=== PATIENT | male | born 1950 | race Caucasian/White ===

== ENCOUNTER 2016-09-16 22:24 | Inpatient (IN) | payer OTHER ==
--- NOTE | ~2016-09-16 | DS ---
Discharge Summary [facility] [address] [place]. [address] NAME: SATNAM ANGELO : 50 STATUS : DIS IN PAT#: [id number] AGE: 66 ADM/REG DATE : 09/16/16 MR#: [id number] REPORT SERV DATE: 10/03/16 DICTATED BY: TOM DAMON DATE: 10/02/16 REPORT STATUS : Draft TRANSCRIBED BY: FINESSE DATE: 10/02/16 Data Collection from hospitalization DISCHARGE DIAGNOSES: 1. Nni-TB-dbomevgee myocardial infarction. 2. Coronary artery disease, status post coronary artery bypass grafting and status post drug-eluting stent, proximal saphenous vein graft - obtuse marginal. 3. Chronic diastolic congestive heart failure. 4. History of cerebrovascular accident. 5. Hypertension. 6. Debilitation secondary to history of cerebrovascular accident. 7. Diabetes. 8. Chronic obstructive pulmonary disease. 9. Chronic kidney disease. 10.Anemia. 11.Former smoker. CONSULTATIONS: None. PROCEDURES PERFORMED: Cardiac catheterization and percutaneous coronary intervention on 09/18/2016. MEDICATIONS: Aspirin 81 mg daily, Lipitor 80 mg at bedtime, Coreg 6.25 mg twice a day, Prozac 20 mg daily, Lasix 40 mg twice a day, Amaryl 4 mg daily, Lantus 30 units subcutaneously at bedtime, Prilosec 20 mg daily, Klor-Con 20 mEq daily, Risperdal 1-2 mg twice a day, and Brilinta 90 mg twice a day. He was instructed not to continue Plavix. CONDITION AT DISCHARGE: Stable. DISPOSITION: The patient was discharged home to be followed by home health care on a low- sodium, low-cholesterol, 1800-calorie diabetic diet with no concentrated carbohydrates and activities as instructed. He would follow up with me on 10/17/2016. He would follow up with his primary care provider one week following discharge. HOSPITAL COURSE: This is a 66-year-old man who has a history of coronary artery disease and previous bypass surgery. He presented to the hospital with recent chest discomfort over the past couple of days, it was recurrent and had occurred at rest and was worse with exertion. He also had some chronic shortness of breath and was relatively debilitated. He does nothing more than sit and watch TV in the house and reportedly rarely walks. His chest pain was similar to what he had previously. He has chronic mild edema, which is without change. He has weak legs and chronic back pain. He had no fevers or chills. He had no nausea. He was admitted to the hospital at this time for further evaluation and treatment. Upon admission, his electrocardiogram showed sinus rhythm with poor R-wave progression, possible inferior myocardial infarction of undetermined age. Troponins were abnormal and elevated at 1.21. Creatinine level was 1.58. He was felt to have had a obk-ZF-mryzkwu elevation myocardial infarction. He had been on compliant and we questioned him directly about statins. He said he could not take them because of numbness in his arm and I told him Discharge Summary [address] [place]. [address] NAME: SATNAM ANGELO : 50 STATUS : DIS IN [facility]#: [id number] AGE: 66 ADM/REG DATE : 09/16/16 MR#: [id number] REPORT SERV DATE: 10/03/16 DICTATED BY: TOM DAMON DATE: 10/02/16 REPORT STATUS : Draft TRANSCRIBED BY: FINESSE DATE: 10/02/16 I did not think that was likely to be an effect, and he was going to be started on high-dose statins. It was felt that he would need to undergo an arteriogram and possible percutaneous coronary intervention. The following day, an echocardiogram was performed. He was taken to the cardiac senior cytogenetics laboratory director where he underwent the above-mentioned procedure. He tolerated this well, and there were no complications. On 09/19/2016, his breathing had improved. Diuresis had begun. Creatinine level was 1.36. His breathing continued to improve. He had no chest pain. He was in a normal sinus rhythm. He was transferred to the floor. Discharge planning was begun. On 09/21/2016, he said he was feeling good. He denied shortness of breath or chest pain. He remained in a normal sinus rhythm. JUAN MIGUEL inhibitor was on hold. Discharge instructions were given. Due to his improved and stable condition, he was discharged home to be followed by home health care with the above-stated instructions. Information collected by: Catrina Ruth I submit the above information as my discharge summary. FRANCY/FINESSE Tom Damon M.D., Ph.D, F.A.C.C. / [id number] CC: Tom Damon M.D., Ph.D, F.A.C.CKatya Valdes MD
--- NOTE | ~2016-09-16 | HP ---
History And Physical [facility] [address] [place]. [address] NAME: SATNAM BE : 50 STATUS : ADM Efrain PAT#: [id number] AGE: 66 ADM/REG DATE : 09/16/16 MR#: [id number] REPORT SERV DATE: 09/17/16 DICTATED BY: TOM BATEMAN DATE: 09/17/16 REPORT STATUS : Draft TRANSCRIBED BY: FINESSE DATE: 09/17/16 DATE OF ADMISSION: 09/16/2016 CHIEF COMPLAINT: Chest pain. HISTORY OF PRESENT ILLNESS: Mr. Be is a 66-year-old man with a history of coronary artery disease and previous bypass surgery. He presented to the hospital with recent chest discomfort over the past couple of days. It was recurrent and occurred at rest, and was worse with exertion. He also has some chronic shortness of breath and is relatively debilitated. He does nothing more than sit and watch TV in the house, and reportedly rarely walks. His chest pain was similar to what he had previously. He has chronic mild edema which is without change. He has weak legs and chronic back pain. He has no fevers or chills. No nausea. REVIEW OF SYSTEMS: As per the history of present illness. Ten other systems are negative. PAST MEDICAL HISTORY: 1. Coronary artery disease, with reported bypass surgery many years ago, previous PCI as well. 2. COPD, on home O2. 3. Diabetes. 4. History of stroke. 5. Chronic kidney disease. 6. Anemia. FAMILY HISTORY: Positive for heart disease. SOCIAL HISTORY: The patient is . He is a former smoker. He is very sedentary. ALLERGIES: SIMVASTATIN, CAUSING ARM NUMBNESS. HOME MEDICATIONS: Aspirin 81 daily, Coreg 3.125 mg p.o. b.i.d., Plavix 75 daily, Prozac, Lasix 40 p.o. b.i.d., Amaryl, insulin, Prilosec 20 daily, potassium, Risperdal. PHYSICAL EXAMINATION: VITAL SIGNS: Heart rate 48, blood pressure 117/58. GENERAL: GENERAL: The patient is pleasant, obese white male, in no apparent distress. HEENT: Conjunctivae are anicteric, no xanthelasma, lips without cyanosis. NECK: Supple. Jugular venous pressure is not elevated. LUNGS: Decreased breath sounds in the bases. No rales. CARDIOVASCULAR: Regular rate and rhythm. Distant heart sounds. No murmur, rub, or gallop. ABDOMEN: Soft, nontender, nondistended, with normal bowel sounds. No hepatomegaly. EXTREMITIES: Mild bilateral lower extremity edema. NEURO/PSYCH: Grossly nonfocal, but legs are weak with mild muscle atrophy. History And Physical [address] [address] NAME: SATNAM BE : 50 STATUS : ADM Efrain PAT#: [id number] AGE: 66 ADM/REG DATE : 09/16/16 MR#: [id number] REPORT SERV DATE: 09/17/16 DICTATED BY: TOM BATEMAN DATE: 09/17/16 REPORT STATUS : Draft TRANSCRIBED BY: FINESSE DATE: 09/17/16 DATA: Electrocardiogram shows sinus rhythm, poor R-wave progression, possible inferior WI, age undetermined. Troponins abnormal, elevated at 1.21. Creatinine of 1.58. IMPRESSION: 1. Zdz-AV-glhdynu elevation myocardial infarction with escalating chest pain for the past two days of elevated troponin. 2. Coronary artery disease with history of bypass surgery and subsequent PCI. 3. Diabetes. 4. Hypertension. 5. Obesity. RECOMMENDATIONS: Mr. Be presents with abnormal troponins and recent chest pain. He has been noncompliant with followup and questioned him directly about statins, he told that he could not take them because of numbness in his arms, and told him that I did not think that is likely to be a class effect, and we will start him on high-dose statins. I recommended an arteriogram for evaluation and we will follow his course. FABRIZIO/FINESSE Tom Bateman M.D., Ph.D, F.A.C.C. / [phone] CC: Tom Bateman M.D., Ph.D, F.A.C.C.
[2016-09-16 21:41] LABS: BASOPHILS 0.7 %; BASOPHILS ABSOLUTE 0.06 10/3/uL (0.0-0.16); EOSINOPHILS 3.6 %; EOSINOPHILS ABSOLUTE 0.29 10/3/uL (0.0-0.53); ER CBC TAT 0 Hrs 08 Mins; HEMOGLOBIN 12.9 g/dL (13.6-17.8); IMMATURE GRANULOCYTES 0.4 %; IMMATURE GRANULOCYTES ABSOLUTE 0.03 10/3/uL (0.0-0.11); LYMPHOCYTES 16.9 %; LYMPHOCYTES ABSOLUTE 1.36 10/3/uL (0.67-4.30); MANUAL DIFF NO %; MEAN CORPUS HGB CONC 33.9 g/dL (32.0-36.0); MEAN CORPUSCULAR HEMOGLOB 30.2 pg (26.0-34.0); MEAN PLATELET VOLUME 10.2 fL (9.2-13.0); MONOCYTES 4.6 %; MONOCYTES ABSOLUTE 0.37 10/3/uL (0.21-1.20); NEUTROPHILS 73.8 %; NEUTROPHILS ABSOLUTE 5.93 10/3/uL (2.02-8.40); PLATELET COUNT 167 10/3/uL (150-400); RBC DISTRIBUTION WIDTH 14.4 % (12.0-16.0); RED CELL COUNT 4.27 10/6/uL (4.7-6.1)
[2016-09-16 21:46] LABS: PROTIME (NOT ORD) 12.6 SEC (12.0-14.5)
[2016-09-16 21:56] LABS: CALCIUM, SERUM 8.5 MG/DL (8.5-10.4); CHEST PAIN PROFILE TAT 0 Hrs 23 Mins; CHLORIDE, SERUM 101 MMOL/L (96-112); CO2 (CARBON DIOXIDE) 28 MMOL/L (24-34); CREATININE 1.58 MG/DL (0.70-1.30); GFR AFRICAN AMERICAN 52 ML/MIN (>=60); GFR NON AFRICAN AMERICAN 45 ML/MIN (>=60); TROPONIN I 0.03 NG/ML (<0.05)
[2016-09-16 21:57] LABS: BUN (BLOOD UREA NITROGEN) 18 MG/DL (6-23); GLUCOSE, SERUM 257 MG/DL (60-99); POTASSIUM, SERUM 3.6 MMOL/L (3.5-5.3); SODIUM, SERUM 138 MMOL/L (135-148)
[~2016-09-16 22:24] MED LIST: ALEVE220 MG PO; ALTA2.5 PO; ASA5GR PO; ASAB PO; COREG3 PO; COREG6 PO; DIABET2.5 PO; DIABETA5 PO; FORTAMET500 MG PO; KLOR-CON M2020 MEQ PO; L40 PO; L80 PO; LANTUS SC; LANTUSCART SC; LIPITOR20 PO; LIPITOR40 PO; LOFIBRA54 MG PO; LOP25 PO; MICRONASE5 MG PO; NAMENDA5 PO; NAP500 PO; NITROSTAT0.3 MG SL; PAX20 PO; PERCOCET1 TA2 PO; PLAVIX PO; PRILO PO; PRIN10 PO; PROVENTSOL INH; PROZAC PO; PSORIASIS CREAM T; RISP1 PO; RISP2 PO; ZANTAC150 MG PO
[2016-09-16] MEDS ORDERED: LANTUS SC (23:31)
[2016-09-16] MEDS ORDERED: PLAVIX PO (23:31)
[2016-09-16] MEDS ORDERED: PROZAC PO (23:32)
[2016-09-16] MEDS ORDERED: ASAB PO (23:32)
[2016-09-16] MEDS ORDERED: L40 PO (23:32)
[2016-09-16] MEDS ORDERED: AMARYL4 PO (23:33)
[2016-09-16] MEDS ORDERED: RESPERIDOL (23:34)
[2016-09-16] MEDS ORDERED: PRILO PO (23:35)
[2016-09-16] MEDS ORDERED: KLOR-CON M2020 MEQ PO (23:35)
[2016-09-16] MEDS ORDERED: COREG6 PO (23:35)
[2016-09-16] MEDS ORDERED: RESPERIDONE (23:40)
[2016-09-18 03:41] LABS: BASOPHILS 1.6 %; BASOPHILS ABSOLUTE 0.11 10/3/uL (0.0-0.16); EOSINOPHILS 4.8 %; EOSINOPHILS ABSOLUTE 0.33 10/3/uL (0.0-0.53); HEMATOCRIT 35.6 % (40.0-51.0); HEMOGLOBIN 11.8 g/dL (13.6-17.8); IMMATURE GRANULOCYTES 0.4 %; IMMATURE GRANULOCYTES ABSOLUTE 0.03 10/3/uL (0.0-0.11); LYMPHOCYTES ABSOLUTE 2.39 10/3/uL (0.67-4.30); MEAN CORPUS HGB CONC 33.1 g/dL (32.0-36.0); MEAN CORPUSCULAR HEMOGLOB 29.3 pg (26.0-34.0); MEAN CORPUSCULAR VOLUME 88.3 fL (80-100); MEAN PLATELET VOLUME 10.3 fL (9.2-13.0); MONOCYTES 5.7 %; MONOCYTES ABSOLUTE 0.39 10/3/uL (0.21-1.20); NEUTROPHILS 52.5 %; NEUTROPHILS ABSOLUTE 3.58 10/3/uL (2.02-8.40); PLATELET COUNT 142 10/3/uL (150-400); RBC DISTRIBUTION WIDTH 14.4 % (12.0-16.0); RED CELL COUNT 4.03 10/6/uL (4.7-6.1); WHITE BLOOD CELLS 6.8 10/3/uL (4.5-10.5)
[2016-09-18 03:45] LABS: MANUAL DIFF NO %
[2016-09-18 03:52] LABS: INTERNATIONAL NORMAL RATI 1.1 UNITS (-); PARTIAL THROMBO TIME 37.4 SEC (22.5-37.2); PROTIME (NOT ORD) 13.6 SEC (12.0-14.5)
[2016-09-18 04:02] LABS: BUN (BLOOD UREA NITROGEN) 20 MG/DL (6-23); CALCIUM, SERUM 8.9 MG/DL (8.5-10.4); CHLORIDE, SERUM 100 MMOL/L (96-112); CHOL/HDL RATIO(NOT ORDER) 6.8 (0-5); CHOLESTEROL 237 MG/DL (< 200); CO2 (CARBON DIOXIDE) 32 MMOL/L (24-34); CREATININE 1.36 MG/DL (0.70-1.30); GFR AFRICAN AMERICAN 62 ML/MIN (>=60); GFR NON AFRICAN AMERICAN 54 ML/MIN (>=60); HDL CHOLESTEROL 35 MG/DL (> 39); NON-HDL CHOLESTEROL 202 MG/DL (< 160); POTASSIUM, SERUM 3.4 MMOL/L (3.5-5.3); SGPT(ALT) 23 U/L (5-65); SODIUM, SERUM 139 MMOL/L (135-148)
[2016-09-18 04:04] LABS: GLUCOSE, SERUM 166 MG/DL (60-99); TRIGLYCERIDE 458 MG/DL (< 150); TROPONIN I 1.66 NG/ML (<0.05)
[2016-09-18 13:58] LABS: BASOPHILS 0.8 %; BASOPHILS ABSOLUTE 0.05 10/3/uL (0.0-0.16); EOSINOPHILS 3.6 %; EOSINOPHILS ABSOLUTE 0.23 10/3/uL (0.0-0.53); HEMATOCRIT 35.3 % (40.0-51.0); HEMOGLOBIN 11.9 g/dL (13.6-17.8); IMMATURE GRANULOCYTES 0.5 %; IMMATURE GRANULOCYTES ABSOLUTE 0.03 10/3/uL (0.0-0.11); LYMPHOCYTES 19.3 %; LYMPHOCYTES ABSOLUTE 1.22 10/3/uL (0.67-4.30); MANUAL DIFF NO %; MEAN CORPUS HGB CONC 33.7 g/dL (32.0-36.0); MEAN CORPUSCULAR VOLUME 88.9 fL (80-100); MEAN PLATELET VOLUME 10.1 fL (9.2-13.0); MONOCYTES 6.2 %; MONOCYTES ABSOLUTE 0.39 10/3/uL (0.21-1.20); NEUTROPHILS 69.6 %; PLATELET COUNT 150 10/3/uL (150-400); RBC DISTRIBUTION WIDTH 14.3 % (12.0-16.0); RED CELL COUNT 3.97 10/6/uL (4.7-6.1); WHITE BLOOD CELLS 6.3 10/3/uL (4.5-10.5)
[2016-09-18 14:12] LABS: CK-MB 3.2 NG/ML; CPK 53 U/L (0-200)
[2016-09-18 18:23] LABS: BASOPHILS 0.8 %; BASOPHILS ABSOLUTE 0.07 10/3/uL (0.0-0.16); EOSINOPHILS 1.6 %; EOSINOPHILS ABSOLUTE 0.13 10/3/uL (0.0-0.53); HEMATOCRIT 37.4 % (40.0-51.0); HEMOGLOBIN 12.4 g/dL (13.6-17.8); IMMATURE GRANULOCYTES 0.6 %; IMMATURE GRANULOCYTES ABSOLUTE 0.05 10/3/uL (0.0-0.11); LYMPHOCYTES 12.6 %; LYMPHOCYTES ABSOLUTE 1.05 10/3/uL (0.67-4.30); MANUAL DIFF NO %; MEAN CORPUS HGB CONC 33.2 g/dL (32.0-36.0); MEAN CORPUSCULAR HEMOGLOB 29.4 pg (26.0-34.0); MEAN CORPUSCULAR VOLUME 88.6 fL (80-100); MEAN PLATELET VOLUME 9.9 fL (9.2-13.0); MONOCYTES 6.2 %; MONOCYTES ABSOLUTE 0.52 10/3/uL (0.21-1.20); NEUTROPHILS 78.2 %; NEUTROPHILS ABSOLUTE 6.51 10/3/uL (2.02-8.40); PLATELET COUNT 151 10/3/uL (150-400); RBC DISTRIBUTION WIDTH 14.7 % (12.0-16.0); RED CELL COUNT 4.22 10/6/uL (4.7-6.1); WHITE BLOOD CELLS 8.3 10/3/uL (4.5-10.5)
[2016-09-18 21:30] LABS: BASOPHILS 0.5 %; BASOPHILS ABSOLUTE 0.05 10/3/uL (0.0-0.16); EOSINOPHILS 0.9 %; EOSINOPHILS ABSOLUTE 0.09 10/3/uL (0.0-0.53); HEMATOCRIT 38.4 % (40.0-51.0); HEMOGLOBIN 12.8 g/dL (13.6-17.8); IMMATURE GRANULOCYTES 0.4 %; IMMATURE GRANULOCYTES ABSOLUTE 0.04 10/3/uL (0.0-0.11); LYMPHOCYTES 8.6 %; LYMPHOCYTES ABSOLUTE 0.85 10/3/uL (0.67-4.30); MEAN CORPUS HGB CONC 33.3 g/dL (32.0-36.0); MEAN CORPUSCULAR HEMOGLOB 29.6 pg (26.0-34.0); MEAN CORPUSCULAR VOLUME 88.9 fL (80-100); MEAN PLATELET VOLUME 10.1 fL (9.2-13.0); MONOCYTES 5.3 %; MONOCYTES ABSOLUTE 0.52 10/3/uL (0.21-1.20); NEUTROPHILS 84.3 %; NEUTROPHILS ABSOLUTE 8.29 10/3/uL (2.02-8.40); PLATELET COUNT 166 10/3/uL (150-400); RBC DISTRIBUTION WIDTH 14.6 % (12.0-16.0); RED CELL COUNT 4.32 10/6/uL (4.7-6.1); WHITE BLOOD CELLS 9.8 10/3/uL (4.5-10.5)
[2016-09-18 21:31] LABS: MANUAL DIFF NO %
[2016-09-19 06:05] LABS: BASOPHILS 0.7 %; BASOPHILS ABSOLUTE 0.06 10/3/uL (0.0-0.16); EOSINOPHILS 0.7 %; EOSINOPHILS ABSOLUTE 0.06 10/3/uL (0.0-0.53); HEMATOCRIT 35.6 % (40.0-51.0); HEMOGLOBIN 12.2 g/dL (13.6-17.8); IMMATURE GRANULOCYTES 0.3 %; IMMATURE GRANULOCYTES ABSOLUTE 0.03 10/3/uL (0.0-0.11); LYMPHOCYTES 8.9 %; LYMPHOCYTES ABSOLUTE 0.78 10/3/uL (0.67-4.30); MEAN CORPUS HGB CONC 34.3 g/dL (32.0-36.0); MEAN CORPUSCULAR HEMOGLOB 30.4 pg (26.0-34.0); MEAN CORPUSCULAR VOLUME 88.8 fL (80-100); MEAN PLATELET VOLUME 10.1 fL (9.2-13.0); MONOCYTES 6.6 %; MONOCYTES ABSOLUTE 0.58 10/3/uL (0.21-1.20); NEUTROPHILS 82.8 %; NEUTROPHILS ABSOLUTE 7.26 10/3/uL (2.02-8.40); PLATELET COUNT 167 10/3/uL (150-400); RBC DISTRIBUTION WIDTH 14.4 % (12.0-16.0); RED CELL COUNT 4.01 10/6/uL (4.7-6.1); WHITE BLOOD CELLS 8.8 10/3/uL (4.5-10.5)
[2016-09-19 06:06] LABS: INTERNATIONAL NORMAL RATI 1.1 UNITS (-); MANUAL DIFF NO %; PARTIAL THROMBO TIME 29.7 SEC (22.5-37.2); PROTIME (NOT ORD) 13.9 SEC (12.0-14.5)
[2016-09-19 06:24] LABS: BUN (BLOOD UREA NITROGEN) 18 MG/DL (6-23); CHLORIDE, SERUM 101 MMOL/L (96-112); CK-MB 84.5 NG/ML; CO2 (CARBON DIOXIDE) 28 MMOL/L (24-34); CPK 887 U/L (0-200); CREATININE 1.36 MG/DL (0.70-1.30); GFR AFRICAN AMERICAN 62 ML/MIN (>=60); GFR NON AFRICAN AMERICAN 54 ML/MIN (>=60); GLUCOSE, SERUM 192 MG/DL (60-99); PHOSPHORUS, SERUM 2.5 MG/DL (2.5-4.5); POTASSIUM, SERUM 4.1 MMOL/L (3.5-5.3); SODIUM, SERUM 136 MMOL/L (135-148)
[2016-09-19 06:25] LABS: CALCIUM, SERUM 8.9 MG/DL (8.5-10.4); CKMB INDEX (NOT ORD) 9.5
[2016-09-20 04:28] LABS: BASOPHILS 0.7 %; BASOPHILS ABSOLUTE 0.06 10/3/uL (0.0-0.16); EOSINOPHILS 2.2 %; HEMATOCRIT 35.8 % (40.0-51.0); HEMOGLOBIN 12.1 g/dL (13.6-17.8); IMMATURE GRANULOCYTES 0.5 %; IMMATURE GRANULOCYTES ABSOLUTE 0.05 10/3/uL (0.0-0.11); LYMPHOCYTES 17.8 %; LYMPHOCYTES ABSOLUTE 1.63 10/3/uL (0.67-4.30); MEAN CORPUS HGB CONC 33.8 g/dL (32.0-36.0); MEAN CORPUSCULAR HEMOGLOB 30.3 pg (26.0-34.0); MEAN CORPUSCULAR VOLUME 89.5 fL (80-100); MEAN PLATELET VOLUME 9.8 fL (9.2-13.0); MONOCYTES 10.9 %; NEUTROPHILS 67.9 %; PLATELET COUNT 148 10/3/uL (150-400); RBC DISTRIBUTION WIDTH 14.5 % (12.0-16.0); WHITE BLOOD CELLS 9.1 10/3/uL (4.5-10.5)
[2016-09-20 04:29] LABS: MANUAL DIFF NO %
[2016-09-20 04:41] LABS: BUN (BLOOD UREA NITROGEN) 20 MG/DL (6-23); CALCIUM, SERUM 9.2 MG/DL (8.5-10.4); CHLORIDE, SERUM 100 MMOL/L (96-112); CREATININE 1.47 MG/DL (0.70-1.30); GFR AFRICAN AMERICAN 57 ML/MIN (>=60); GFR NON AFRICAN AMERICAN 49 ML/MIN (>=60); POTASSIUM, SERUM 3.8 MMOL/L (3.5-5.3); SODIUM, SERUM 141 MMOL/L (135-148)
[2016-09-20 04:43] LABS: CO2 (CARBON DIOXIDE) 33 MMOL/L (24-34); GLUCOSE, SERUM 147 MG/DL (60-99)
[2016-09-21 04:53] LABS: BASOPHILS 0.5 %; BASOPHILS ABSOLUTE 0.05 10/3/uL (0.0-0.16); EOSINOPHILS 3.1 %; EOSINOPHILS ABSOLUTE 0.29 10/3/uL (0.0-0.53); HEMOGLOBIN 10.5 g/dL (13.6-17.8); IMMATURE GRANULOCYTES 0.7 %; IMMATURE GRANULOCYTES ABSOLUTE 0.06 10/3/uL (0.0-0.11); LYMPHOCYTES ABSOLUTE 1.75 10/3/uL (0.67-4.30); MEAN CORPUSCULAR HEMOGLOB 29.7 pg (26.0-34.0); MEAN CORPUSCULAR VOLUME 90.1 fL (80-100); MONOCYTES 6.5 %; NEUTROPHILS 70.2 %; NEUTROPHILS ABSOLUTE 6.48 10/3/uL (2.02-8.40); PLATELET COUNT 162 10/3/uL (150-400); RBC DISTRIBUTION WIDTH 14.8 % (12.0-16.0); RED CELL COUNT 3.53 10/6/uL (4.7-6.1); WHITE BLOOD CELLS 9.2 10/3/uL (4.5-10.5)
[2016-09-21 04:54] LABS: HEMATOCRIT 31.8 % (40.0-51.0); MANUAL DIFF NO %
[2016-09-21 05:04] LABS: POTASSIUM, SERUM 3.8 MMOL/L (3.5-5.3); SODIUM, SERUM 137 MMOL/L (135-148)
[2016-09-21 05:05] LABS: BUN (BLOOD UREA NITROGEN) 30 MG/DL (6-23); CALCIUM, SERUM 8.8 MG/DL (8.5-10.4); CHLORIDE, SERUM 98 MMOL/L (96-112); CO2 (CARBON DIOXIDE) 33 MMOL/L (24-34); CREATININE 1.88 MG/DL (0.70-1.30); GFR AFRICAN AMERICAN 42 ML/MIN (>=60); GFR NON AFRICAN AMERICAN 36 ML/MIN (>=60); GLUCOSE, SERUM 144 MG/DL (60-99)
[2016-09-21] MEDS ORDERED: LIPITOR80 MG PO (14:45)
[2016-09-21] MEDS ORDERED: BRILINTA90 MG PO (14:47)
[2016-09-21] MEDS ORDERED: RISP1 PO (14:49)
[2016-11-02] MEDS ORDERED: AMARYL4 PO (12:46)
[2016-11-02] MEDS ORDERED: LANTUS SC (12:46)
[2016-11-02] MEDS ORDERED: KLOR-CON M2020 MEQ PO (12:47)
[2016-11-02] MEDS ORDERED: RISP1 PO (12:47)
[2016-11-02] MEDS ORDERED: RISP2 PO (12:47)
[2016-11-02] MEDS ORDERED: L40 PO ×2 (12:48)
[2016-11-02] MEDS ORDERED: COREG3 PO (12:48)
[2016-11-02] MEDS ORDERED: BACTROINT TOP (12:49)
[2016-11-02] MEDS ORDERED: PLAVIX PO (12:50)
[2016-11-02] MEDS ORDERED: TRIAMCINOLONE C80 GM TOP (12:50)
[2016-11-02] MEDS ORDERED: PROZAC PO (12:50)
[2016-11-02] MEDS ORDERED: ALBUTEROL0.083 % INH (12:50)
[2016-11-02] MEDS ORDERED: ASAB PO (12:54)
[2016-11-02] MEDS ORDERED: PRILO PO (12:54)
[2016-11-02] MEDS ORDERED: ALEVE220 MG PO (12:55)
[2016-11-02] MEDS ORDERED: CYMBALTA30 PO (12:56)
[2016-11-02] MEDS ORDERED: NITROSTAT0.4 MG SL (12:57)
[2016-11-06] MEDS ORDERED: COZ25 PO (12:08)
[2016-11-18] MEDS ORDERED: *UNABLE1 (14:44)
[2016-11-18] MEDS ORDERED: COZ25 PO (16:26)
[2016-11-18] MEDS ORDERED: LANTUS SC (16:27)
[2016-11-18] MEDS ORDERED: AMARYL4 PO (16:29)
[2016-11-18] MEDS ORDERED: RISP1 PO (16:30)
[2016-11-18] MEDS ORDERED: KLOR-CON M2020 MEQ PO (16:30)
[2016-11-18] MEDS ORDERED: RISP2 PO (16:30)
[2016-11-18] MEDS ORDERED: ALEVE220 MG PO (16:31)
[2016-11-18] MEDS ORDERED: HALF81 PO (16:31)
[2016-11-18] MEDS ORDERED: BRILINTA90 MG PO (16:31)
[2016-11-18] MEDS ORDERED: L80 PO (16:31)
[2016-11-18] MEDS ORDERED: LIPITOR80 MG PO (16:31)
[2016-11-18] MEDS ORDERED: NITROSTAT0.4 MG SL (16:32)
[2016-11-18] MEDS ORDERED: ACET500CAP PO (16:32)
[2016-11-18] MEDS ORDERED: COREG3 PO (16:33)
[2016-11-18] MEDS ORDERED: TRIAMCINOLONE C80 GM TOP (16:34)
[2016-11-18] MEDS ORDERED: PROZAC PO (16:34)
[2016-11-18] MEDS ORDERED: PLAVIX PO (16:35)
[2016-11-18] MEDS ORDERED: PRILO PO (16:35)
[2016-11-18] MEDS ORDERED: ALBUTEROL0.083 % INH (16:35)
== END 2016-09-21 18:21 | disposition home health service (06) | DRG 246 ==
LOC: ER 22:24 → CDU1 23:37 → CDU2 09-17 01:14 → CCU 09-18 12:50 → 5NO 09-20 17:29
PROVIDERS: Emergency Medicine; Internal Medicine Cardiovascular Disease
PROC: 027034Z Dilation of Coronary Artery, One Artery with Drug-eluting Intraluminal Device, Percutaneous Approach (ICD-10-PCS; principal; 2016-09-18)
PROC: 4A023N7 Measurement of Cardiac Sampling and Pressure, Left Heart, Percutaneous Approach (ICD-10-PCS; 2016-09-18)
PROC: B2151ZZ Fluoroscopy of Left Heart using Low Osmolar Contrast (ICD-10-PCS; 2016-09-18)
PROC: B2131ZZ Fluoroscopy of Multiple Coronary Artery Bypass Grafts using Low Osmolar Contrast (ICD-10-PCS; 2016-09-18)
PROC: B2181ZZ Fluoroscopy of Left Internal Mammary Bypass Graft using Low Osmolar Contrast (ICD-10-PCS; 2016-09-18)
PROC: B2111ZZ Fluoroscopy of Multiple Coronary Arteries using Low Osmolar Contrast (ICD-10-PCS; 2016-09-18)
DX: I21.4 Non-ST elevation (NSTEMI) myocardial infarction (principal); I50.33 Acute on chronic diastolic (congestive) heart failure; N17.9 Acute kidney failure, unspecified; I13.0 Hypertensive heart and chronic kidney disease with heart failure and stage 1 through stage 4 chronic kidney disease, or unspecified chronic kidney disease; I25.10 Atherosclerotic heart disease of native coronary artery without angina pectoris; E11.22 Type 2 diabetes mellitus with diabetic chronic kidney disease; J44.9 Chronic obstructive pulmonary disease, unspecified; D64.9 Anemia, unspecified; E66.9 Obesity, unspecified; Z95.1 Presence of aortocoronary bypass graft; Z86.73 Personal history of transient ischemic attack (TIA), and cerebral infarction without residual deficits; Z99.81 Dependence on supplemental oxygen; Z82.49 Family history of ischemic heart disease and other diseases of the circulatory system; Z91.19 Patient's noncompliance with other medical treatment and regimen; N18.3 Chronic kidney disease, stage 3 (moderate); Z68.39 Body mass index [BMI] 39.0-39.9, adult
CPT/HCPCS: 71010; 80048; 80061; 82550; 82553; 82565; 82962; 83036; 83735; 83880; 84100; 84460; 84484; 85025; 85610; 85730; 87641; 93005; 93459; 97166-GO; 99152; 99153; 99285; A9270-GY; C1725; C1757; C1769; C1874; C1887; C8929; C9604; J0583; J1327; J2250; J2370; J2405; J3010; Q9957; Q9967